=== PATIENT | female | born 2000 | race African-American/Black ===

== ENCOUNTER 2025-03-20 04:51 | Day surgery (SDC) | payer BC ==
[2025-03-20 05:25] VITALS: BMI 44.2
[2025-03-20] MEDS ORDERED: hydrALAZINE 20 MG/ML VIAL SLOW IVP PRN (05:42)
[2025-03-22 06:59] LABS: Chlamydia by PCR, Vaginal Swab *Indeterminate (NotDetected); GC by PCR, Vaginal Swab *Indeterminate (NotDetected)
== END 2025-03-20 07:54 | disposition home health service (06) ==
LOC: CSHLD/OP 04:51
PROVIDERS: ATTEND Family Medicine
DX: O47.1 False labor at or after 37 completed weeks of gestation (principal); O23.593 Infection of other part of genital tract in pregnancy, third trimester; N89.8 Other specified noninflammatory disorders of vagina; B96.89 Other specified bacterial agents as the cause of diseases classified elsewhere; Z3A.37 37 weeks gestation of pregnancy; Z79.899 Other long term (current) drug therapy
CPT/HCPCS: 87480; 87491; 87510; 87591; 87660; 99285

== ENCOUNTER 2025-03-30 01:59 | Day surgery (SDC) | payer BC ==
[2025-03-30 02:36] VITALS: BMI 44.2
[2025-03-30] MEDS ORDERED: hydrALAZINE 20 MG/ML VIAL SLOW IVP PRN (02:42)
[2025-03-30 03:30] LABS: Fetal Membranes Rupture No Membranes Rupture (No Rupture)
== END 2025-03-30 05:00 | disposition home or self-care (01) ==
LOC: CSHERS 01:59
PROVIDERS: ATTEND Family Medicine
DX: Z03.71 Encounter for suspected problem with amniotic cavity and membrane ruled out (principal); O32.1XX0 Maternal care for breech presentation, not applicable or unspecified; O47.1 False labor at or after 37 completed weeks of gestation; Z3A.38 38 weeks gestation of pregnancy; Z91.018 Allergy to other foods; Z91.012 Allergy to eggs; Z79.82 Long term (current) use of aspirin
CPT/HCPCS: 84112; 87480; 87510; 87660; 99285

== ENCOUNTER 2025-04-05 10:06 | Inpatient (IN) | payer BC ==
[2025-04-04 11:31] LABS: Hematocrit 33.2 % (34.9-44.5); Hemoglobin 10.7 g/dL (12.0-15.5); Platelet Count 235 10x3/uL (150-450)
[2025-04-04 12:08] LABS: Syphilis Antibody Index 0.10 S/CO (<1.00 Non-Reactive)
[2025-04-04 12:10] LABS: HIV (1/2) Antibody/Antigen Non-Reactive (NonReactive); HIV 1/2 INDEX 0.11 S/CO (<1.00); Hep B Surf Ag Non-Reactive S/CO (NonReactive)
[2025-04-05 10:28] VITALS: BMI 44.2
[2025-04-05] MEDS ORDERED: Bicitra 30 ML UDCUP PO PRN (10:29)
[2025-04-05] MEDS ORDERED: Ondansetron PF 4 MG/2 ML Vial IVP PRN ×4 (10:29→15:34)
[2025-04-05] MEDS ORDERED: Diphenoxylate HCl/Atropine Tablet PO PRN (10:29)
[2025-04-05] MEDS ORDERED: Carboprost 250 MCG/ML AMP IM PRN (10:29)
[2025-04-05] MEDS ORDERED: Tranexamic Acid 1,000 MG/10 ML VIAL IVP PRN (10:29)
[2025-04-05] MEDS ORDERED: hydrALAZINE 20 MG/ML VIAL SLOW IVP PRN ×2 (10:29→15:34)
[2025-04-05] MEDS ORDERED: Oxytocin 30 units/NS 500 ML 500 ML IV SCH (10:29)
[2025-04-05] MEDS ORDERED: Methylergonovine 0.2 MG/ML VIAL IM PRN (10:29)
[2025-04-05] MEDS: Famotidine/PF 20 mg/2ml Vial SLOW IVP PRN (11:11)
[2025-04-05] MEDS: CEFAZOLIN 3 GM, Admixture Fee 1 EACH in Sodium Chloride 0.9% 100 ML IVPB SCH (11:12)
[2025-04-05] MEDS ORDERED: Ketorolac Tromethamine 30 MG (1 mL) VIAL IVP PRN (13:28)
[2025-04-05] MEDS ORDERED: HYDROmorphone 0.5 MG/0.5 ML SYRINGE SLOW IVP PRN (13:28)
[2025-04-05] MEDS ORDERED: Meperidine HCl/PF 25 MG (1 mL) VIAL SLOW IVP PRN (13:28)
[2025-04-05] MEDS ORDERED: Communication Order-Pharmacy FS SCH (13:30)
[2025-04-05] MEDS: Ketorolac Tromethamine 30 MG (1 mL) VIAL IVP SCH ×2 (14:43→21:21)
[2025-04-05] MEDS: diphenhydrAMINE 50 MG/ML VIAL IVP PRN (14:54)
[2025-04-05] MEDS ORDERED: Lanolin Ointment 7 GM TUBE TOP PRN (15:34)
[2025-04-05] MEDS ORDERED: diphenhydrAMINE 25 MG CAP PO PRN (15:34)
[2025-04-05] MEDS ORDERED: Simethicone Chewable 80 MG TAB PO PRN (15:34)
[2025-04-05] MEDS ORDERED: Bisacodyl 10 MG SUPP PR PRN (15:34)
[2025-04-05] MEDS: Boostrix 0.5 ML (Tdap) VIAL (>/=7 yrs of age) IM ONE (16:28)
[2025-04-05] MEDS: Ferrous Sulfate 325 MG TAB PO SCH (21:22)
[2025-04-06] MEDS ORDERED: Meperidine HCl/PF 25 MG (1 mL) VIAL IM PRN (01:30)
[2025-04-06 05:48] LABS: Hematocrit 30.2 % (34.9-44.5); Hemoglobin 9.9 g/dL (12.0-15.5); Mean Corpuscular Hemoglobin 26.4 pg (27.0-33.0); Mean Corpuscular Volume 80.5 fL (81.6-98.3); Platelet Count 201 10x3/uL (150-450); Red Blood Cell (RBC) Count 3.75 10x6/uL (3.90-5.03); White Blood Cell (WBC) Count 9.71 10x3/uL (3.5-10.5)
[2025-04-06] MEDS: HYDROcodone/Acetaminophen 5/325 mg Tablet PO PRN ×2 (10:14→16:43)
[2025-04-06] MEDS: Ketorolac Tromethamine 30 MG (1 mL) VIAL IVP SCH (12:07)
[2025-04-06] MEDS: Ibuprofen 800 MG TAB PO SCH (17:23)
[2025-04-08 08:32] VITALS: BP 124/83; TEMP 98.3
== END 2025-04-08 13:30 | disposition home or self-care (01) | DRG 788 ==
LOC: CSHLD 10:06 → CSHPED 15:50
PROVIDERS: ADMIT Family Medicine; ATTEND Family Medicine
PROC: 10D00Z1 Extraction of Products of Conception, Low, Open Approach (ICD-10-PCS; principal; 2025-04-05)
DX: O32.1XX0 Maternal care for breech presentation, not applicable or unspecified (principal); O99.214 Obesity complicating childbirth; E66.9 Obesity, unspecified; Z3A.39 39 weeks gestation of pregnancy; Z37.0 Single live birth; Z91.012 Allergy to eggs; Z91.011 Allergy to milk products; Z91.010 Allergy to peanuts; Z88.8 Allergy status to other drugs, medicaments and biological substances; Z91.018 Allergy to other foods; Z79.899 Other long term (current) drug therapy
CPT/HCPCS: 51702; 85014; 85018; 85027; 85049; 86780; 86850; 86900; 86901; 87340; 87389; C1889; J1200; J1308; J1885; J7120